=== PATIENT | female | born 1950 | race Caucasian/White ===

== ENCOUNTER → 2017-07-09 | Outpatient (CLI) | payer MEDICARE ==
--- NOTE | 2017-07-09 14:02 | MM ---
Reason for exam: clinical finding. Last mammogram was performed 1 year and 7 months ago. Physical Findings: Nurse did not find any significant physical abnormalities on exam. MG 3D Diag Mammo W/Cad KOURTNEY Bilateral CC and MLO view(s) were taken. Prior study comparison: December 07, 2015, bilateral MG screening mammo w CAD. The breast tissue is extremely dense which could obscure a lesion on mammography. There is no discrete abnormality including area of concern. No significant new findings when compared with previous films. These results were verbally communicated with the patient and result sheet given to the patient on 07/09/17. ASSESSMENT: Negative, BI-RAD 1 RECOMMENDATION: Routine screening mammogram of both breasts in 1 year. Manage patient on a clinical basis.
== END | disposition home or self-care (01) ==
LOC: RADMAMWWP 12:32
PROVIDERS: ATTEND Family Medicine
DX: N64.4 Mastodynia (principal)
CPT/HCPCS: 77066; G0279

== ENCOUNTER 2018-12-20 16:17 | Emergency (ER) | payer MEDICARE ==
[2018-12-20 17:08] VITALS: TEMP 98.1
[2018-12-20] MEDS ORDERED: SODIUM CHLORIDE 0.9% 1,000 ML IV STA (17:35)
[2018-12-20 18:15] LABS: Basophils # (A) 0.1 k/uL (0-0.2); Basophils % (A) 1 %; Eosinophils # (A) 0.2 k/uL (0-0.7); Eosinophils % (A) 2 %; HCT 45.6 % (34.0-46.0); HGB 15.5 gm/dL (11.4-16.0); Lymphocytes # (A) 1.8 k/uL (1.0-4.8); Lymphocytes % (A) 22 %; MCH 29.7 pg (25.0-35.0); MCHC 33.9 g/dL (31.0-37.0); MCV 87.7 fL (80.0-100.0); Mean Platelet Volume 9.4; Monocytes # (A) 0.4 k/uL (0-1.0); Monocytes % (A) 5 %; Neutrophils # (A) 5.4 k/uL (1.3-7.7); Neutrophils % (A) 68 %; Platelet Count 173 k/uL (150-450); RDW 15.7 % (11.5-15.5)
[2018-12-20 18:25] LABS: ALT 27 U/L (9-52); AST 29 U/L (14-36); African American GFR (CKD) >90 (>60 ml/min/1.73 sqM); Albumin 4.7 g/dL (3.5-5.0); Alkaline Phosphatase 69 U/L (38-126); Anion Gap 8 mmol/L; Blood Urea Nitrogen 13 mg/dL (7-17); Calcium 10.2 mg/dL (8.4-10.2); Carbon Dioxide 27 mmol/L (22-30); Chloride 103 mmol/L (98-107); Creatine Kinase 91 U/L (30-135); Glucose 83 mg/dL (74-99); Magnesium 2.1 mg/dL (1.6-2.3); Phosphorus 3.6 mg/dL (2.5-4.5); Potassium 4.6 mmol/L (3.5-5.1); Sodium 138 mmol/L (137-145); Total Bilirubin 0.4 mg/dL (0.2-1.3); Total Protein 7.3 g/dL (6.3-8.2)
[2018-12-20 18:27] LABS: INR 0.9 (<1.2); Partial Thromboplastin Time 22.4 sec (22.0-30.0); Prothrombin Time 9.6 sec (9.0-12.0)
--- NOTE | 2018-12-20 18:27 | XR ---
EXAMINATION TYPE: XR chest 2V DATE OF EXAM: 12/20/2018 COMPARISON: NONE HISTORY: Weakness TECHNIQUE: Frontal and lateral views of the chest are obtained. FINDINGS: Heart and mediastinum are normal. Lungs are clear. Diaphragm is normal. Bony thorax is int act. There are chest leads. IMPRESSION: No active cardiopulmonary disease.
[2018-12-20 18:32] LABS: Appearance,Urine Clear (Clear); Bilirubin,Urine Negative (Negative); Blood,Urine Small (Negative); Color,Urine Light Yellow; Glucose,Urine (UA) Negative (Negative); Ketones,Urine Negative (Negative); Leukocyte Esterase,Urine Negative (Negative); Nitrite,Urine Negative (Negative); PH, Urine 6.5 (5.0-8.0); Protein,Urine Negative (Negative); RBC,Urine 4 /hpf (0-5); Specific Gravity,Urine 1.005 (1.001-1.035); Squamous Epithelial Cell,Urine <1 /hpf (0-4); Urobilinogen,Urine <2.0 mg/dL (<2.0); WBC,Urine <1 /hpf (0-5)
--- NOTE | 2018-12-20 18:36 | ED ---
Weakness HPI - General Chief complaint: Recheck/Abnormal Lab/Rx Stated complaint: Sick and weak Time Seen by Provider: 12/20/18 17:35 Source: patient, RN notes reviewed, old records reviewed Mode of arrival: ambulatory Limitations: no limitations - History of Present Illness Initial comments: This is a 68-year-old female the ER for evaluation. States she is today for evaluation of generalized weakness and overall not feeling well patient has recent issues with significant activity level, doing a lot of painting more than normal. Patient states she is having increasing weakness that she did not take many of her extremities painting experiences severe. Patient states she was using normal pain, water been. She denies any current chest pain or shortness of breath. Patient just states she has not been feeling herself and has fever and chills, weakness MD Complaint: generalized weakness -: days(s) Location: generalized Severity: mild Severity scale (1-10): 3 Consistency: constant Improves with: movement Worsens with: movement Context: recent illness Associated Symptoms: fever/chills - Related Data Home Medications Medication Instructions Recorded Confirmed Biotin 5 mg PO BID 10/17/13 12/20/18 Levothyroxine Sodium [Synthroid] 50 mcg PO DAILY 10/17/13 12/20/18 Magnesium 200 mg PO DAILY 10/17/13 12/20/18 Propranolol LA [Inderal LA] 60 mg PO DAILY 10/17/13 12/20/18 Ranitidine HCl [Zantac] 150 mg PO BID 02/06/14 12/20/18 Calcium Carb/Vitamin D3/Vit K1 1 tab PO DAILY 12/20/18 12/20/18 [Viactiv Soft Chew Tablet] Allergies Allergy/AdvReac Type Severity Reaction Status Date / Time prednisone Allergy Unknown Verified 12/20/18 18:09 diphenhydramine HCl AdvReac Rapid Verified 12/20/18 18:09 [From Benadryl] Heart Rate Review of Systems ROS Statement: Those systems with pertinent positive or pertinent negative responses have been documented in the HPI. ROS Other: All systems not noted in ROS Statement are negative. Past Medical History Past Medical History: GERD/Reflux, Thyroid Disorder Additional Past Medical History / Comment(s): closed head injury 10-13-13, HX OF DYSPHAGIA, glaucoma History of Any Multi-Drug Resistant Organisms: None Reported Additional Past Surgical History / Comment(s): partial thyroidectomy, EGD WITH DILATION Past Anesthesia/Blood Transfusion Reactions: No Reported Reaction Past Psychological History: No Psychological Hx Reported Smoking Status: Former smoker Past Alcohol Use History: None Reported Past Drug Use History: None Reported General Exam Limitations: no limitations General appearance: alert, in no apparent distress Head exam: Present: atraumatic, normocephalic, normal inspection Eye exam: Present: normal appearance, PERRL, EOMI. Absent: scleral icterus, conjunctival injection, periorbital swelling ENT exam: Present: normal exam, mucous membranes moist Neck exam: Present: normal inspection. Absent: tenderness, meningismus, lymphadenopathy Respiratory exam: Present: normal lung sounds bilaterally. Absent: respiratory distress, wheezes, rales, rhonchi, stridor Cardiovascular Exam: Present: regular rate, normal rhythm, normal heart sounds. Absent: systolic murmur, diastolic murmur, rubs, gallop, clicks GI/Abdominal exam: Present: soft, normal bowel sounds. Absent: distended, tenderness, guarding, rebound, rigid Extremities exam: Present: normal inspection, full ROM, normal capillary refill. Absent: tenderness, pedal edema, joint swelling, calf tenderness Back exam: Present: normal inspection Neurological exam: Present: alert, oriented X3, CN II-XII intact Psychiatric exam: Present: normal affect, normal mood Skin exam: Present: warm, dry, intact, normal color. Absent: rash Course Vital Signs 12/20/18 12/20/18 12/20/18 17:05 18:06 18:10 Temperature 98.1 F Pulse Rate 60 53 L 53 L Respiratory 18 20 16 Rate Blood Pressure 146/84 161/93 O2 Sat by Pulse 99 76 L 99 Oximetry 12/20/18 12/20/18 12/20/18 18:20 18:30 18:40 Temperature Pulse Rate 56 L 54 L 46 L Respiratory 16 16 18 Rate Blood Pressure 161/93 161/93 149/80 O2 Sat by Pulse 99 100 99 Oximetry - Reevaluation(s) Reevaluation #1: 12/20/18 18:58 Medical record reviewed Reevaluation #2: 12/20/18 19:47 A she just remains concerned over weakness fatigue and chills Reevaluation #3: 12/20/18 19:47 Spoke with patient regarding findings, questions answered Reevaluation #4: 12/20/18 19:47 denying any chest pain or shortness of breath EKG Findings - EKG Comments: EKG Findings:: EKG shows sinus bradycardia rate of 50, SD 150, QRS 146, QTc 397 Medical Decision Making - Medical Decision Making 68 female the ER for evaluation of not feeling well, weakness fever or chills. No acute cause found here in the ER. Patient's in no acute distress no fever here in the ER. No chest pain or shortness of breath. EKG lab tests x-ray negative. Patient can be discharged home - Lab Data Result diagrams: 12/20/18 18:05 12/20/18 18:05 Lab Results 12/20/18 12/20/18 12/20/18 Range/Units 18:05 18:05 18:05 WBC 8.0 (3.8-10.6) k/uL RBC 5.20 (3.80-5.40) m/uL Hgb 15.5 (11.4-16.0) gm/dL Hct 45.6 (34.0-46.0) % MCV 87.7 (80.0-100.0) fL MCH 29.7 (25.0-35.0) pg MCHC 33.9 (31.0-37.0) g/dL RDW 15.7 H (11.5-15.5) % Plt Count 173 (150-450) k/uL Neutrophils % 68 % Lymphocytes % 22 % Monocytes % 5 % Eosinophils % 2 % Basophils % 1 % Neutrophils # 5.4 (1.3-7.7) k/uL Lymphocytes # 1.8 (1.0-4.8) k/uL Monocytes # 0.4 (0-1.0) k/uL Eosinophils # 0.2 (0-0.7) k/uL Basophils # 0.1 (0-0.2) k/uL PT (9.0-12.0) sec INR (<1.2) APTT (22.0-30.0) sec Sodium 138 (137-145) mmol/L Potassium 4.6 (3.5-5.1) mmol/L Chloride 103 (98-107) mmol/L Carbon Dioxide 27 (22-30) mmol/L Anion Gap 8 mmol/L BUN 13 (7-17) mg/dL Creatinine 0.78 (0.52-1.04) mg/dL Est GFR (CKD-EPI)AfAm >90 (>60 ml/min/1.73 sqM) Est GFR (CKD-EPI)NonAf 80 (>60 ml/min/1.73 sqM) Glucose 83 (74-99) mg/dL Plasma Lactic Acid Marv 0.9 (0.7-2.0) mmol/L Calcium 10.2 (8.4-10.2) mg/dL Phosphorus 3.6 (2.5-4.5) mg/dL Magnesium 2.1 (1.6-2.3) mg/dL Total Bilirubin 0.4 (0.2-1.3) mg/dL AST 29 (14-36) U/L ALT 27 (9-52) U/L Alkaline Phosphatase 69 (38-126) U/L Creatine Kinase 91 (30-135) U/L Troponin I (0.000-0.034) ng/mL NT-Pro-B Natriuret Pep pg/mL Total Protein 7.3 (6.3-8.2) g/dL Albumin 4.7 (3.5-5.0) g/dL Urine Color Urine Appearance (Clear) Urine pH (5.0-8.0) Ur Specific [place] (1.001-1.035) Urine Protein (Negative) Urine Glucose (UA) (Negative) Urine Ketones (Negative) Urine Blood (Negative) Urine Nitrite (Negative) Urine Bilirubin (Negative) Urine Urobilinogen (<2.0) mg/dL Ur Leukocyte Esterase (Negative) Urine RBC (0-5) /hpf Urine WBC (0-5) /hpf Ur Squamous Epith Cells (0-4) /hpf 12/20/18 12/20/18 12/20/18 Range/Units 18:05 18:05 18:05 WBC (3.8-10.6) k/uL RBC (3.80-5.40) m/uL Hgb (11.4-16.0) gm/dL Hct (34.0-46.0) % MCV (80.0-100.0) fL MCH (25.0-35.0) pg MCHC (31.0-37.0) g/dL RDW (11.5-15.5) % Plt Count (150-450) k/uL Neutrophils % % Lymphocytes % % Monocytes % % Eosinophils % % Basophils % % Neutrophils # (1.3-7.7) k/uL Lymphocytes # (1.0-4.8) k/uL Monocytes # (0-1.0) k/uL Eosinophils # (0-0.7) k/uL Basophils # (0-0.2) k/uL PT 9.6 (9.0-12.0) sec INR 0.9 (<1.2) APTT 22.4 (22.0-30.0) sec Sodium (137-145) mmol/L Potassium (3.5-5.1) mmol/L Chloride (98-107) mmol/L Carbon Dioxide (22-30) mmol/L Anion Gap mmol/L BUN (7-17) mg/dL Creatinine (0.52-1.04) mg/dL Est GFR (CKD-EPI)AfAm (>60 ml/min/1.73 sqM) Est GFR (CKD-EPI)NonAf (>60 ml/min/1.73 sqM) Glucose (74-99) mg/dL Plasma Lactic Acid Marv (0.7-2.0) mmol/L Calcium (8.4-10.2) mg/dL Phosphorus (2.5-4.5) mg/dL Magnesium (1.6-2.3) mg/dL Total Bilirubin (0.2-1.3) mg/dL AST (14-36) U/L ALT (9-52) U/L Alkaline Phosphatase (38-126) U/L Creatine Kinase (30-135) U/L Troponin I <0.012 (0.000-0.034) ng/mL NT-Pro-B Natriuret Pep 187 pg/mL Total Protein (6.3-8.2) g/dL Albumin (3.5-5.0) g/dL Urine Color Urine Appearance (Clear) Urine pH (5.0-8.0) Ur Specific [place] (1.001-1.035) Urine Protein (Negative) Urine Glucose (UA) (Negative) Urine Ketones (Negative) Urine Blood (Negative) Urine Nitrite (Negative) Urine Bilirubin (Negative) Urine Urobilinogen (<2.0) mg/dL Ur Leukocyte Esterase (Negative) Urine RBC (0-5) /hpf Urine WBC (0-5) /hpf Ur Squamous Epith Cells (0-4) /hpf 12/20/18 Range/Units 18:05 WBC (3.8-10.6) k/uL RBC (3.80-5.40) m/uL Hgb (11.4-16.0) gm/dL Hct (34.0-46.0) % MCV (80.0-100.0) fL MCH (25.0-35.0) pg MCHC (31.0-37.0) g/dL RDW (11.5-15.5) % Plt Count (150-450) k/uL Neutrophils % % Lymphocytes % % Monocytes % % Eosinophils % % Basophils % % Neutrophils # (1.3-7.7) k/uL Lymphocytes # (1.0-4.8) k/uL Monocytes # (0-1.0) k/uL Eosinophils # (0-0.7) k/uL Basophils # (0-0.2) k/uL PT (9.0-12.0) sec INR (<1.2) APTT (22.0-30.0) sec Sodium (137-145) mmol/L Potassium (3.5-5.1) mmol/L Chloride (98-107) mmol/L Carbon Dioxide (22-30) mmol/L Anion Gap mmol/L BUN (7-17) mg/dL Creatinine (0.52-1.04) mg/dL Est GFR (CKD-EPI)AfAm (>60 ml/min/1.73 sqM) Est GFR (CKD-EPI)NonAf (>60 ml/min/1.73 sqM) Glucose (74-99) mg/dL Plasma Lactic Acid Marv (0.7-2.0) mmol/L Calcium (8.4-10.2) mg/dL Phosphorus (2.5-4.5) mg/dL Magnesium (1.6-2.3) mg/dL Total Bilirubin (0.2-1.3) mg/dL AST (14-36) U/L ALT (9-52) U/L Alkaline Phosphatase (38-126) U/L Creatine Kinase (30-135) U/L Troponin I (0.000-0.034) ng/mL NT-Pro-B Natriuret Pep pg/mL Total Protein (6.3-8.2) g/dL Albumin (3.5-5.0) g/dL Urine Color Light Yellow Urine Appearance Clear (Clear) Urine pH 6.5 (5.0-8.0) Ur Specific [place] 1.005 (1.001-1.035) Urine Protein Negative (Negative) Urine Glucose (UA) Negative (Negative) Urine Ketones Negative (Negative) Urine Blood Small H (Negative) Urine Nitrite Negative (Negative) Urine Bilirubin Negative (Negative) Urine Urobilinogen <2.0 (<2.0) mg/dL Ur Leukocyte Esterase Negative (Negative) Urine RBC 4 (0-5) /hpf Urine WBC <1 (0-5) /hpf Ur Squamous Epith Cells <1 (0-4) /hpf - Radiology Data Radiology results: report reviewed (X-rays negative for acute disease), image reviewed Disposition Clinical Impression: Weakness Disposition: HOME SELF-CARE Condition: Good Instructions (If sedation given, give patient instructions): Weakness (ED) Is patient prescribed a controlled substance at d/c from ED?: No Referrals: Dash Bruno DO [Primary Care Provider] - 1-2 days
[2018-12-20 19:53] VITALS: BP 138/80; PULSE 57; RESP 20
== END 2018-12-20 19:57 | disposition home or self-care (01) ==
LOC: EC 16:17
DX: R53.1 Weakness (principal); K21.9 Gastro-esophageal reflux disease without esophagitis; Z87.891 Personal history of nicotine dependence; Z79.890 Hormone replacement therapy; Z79.899 Other long term (current) drug therapy; Z88.8 Allergy status to other drugs, medicaments and biological substances; E89.0 Postprocedural hypothyroidism
CPT/HCPCS: 36415; 71046; 80053; 81001; 82550; 83605; 83735; 83880; 84100; 84484; 85025; 85610; 85730; 87086; 93005; 96360; 96361; 99285

== ENCOUNTER 2021-08-13 08:12 | Day surgery (SDC) | payer MEDICARE ==
[2021-08-12 14:03] VITALS: BMI 21.1
[~2021-08-13 08:12] MED LIST: LACTATED RINGERS 1,000 ML IV SCH; LIDOCAINE 1% (10MG/ML) FOR IV START INTRADERMA PRN
[2021-08-13 09:36] VITALS: RESP 16; TEMP 98.4
[2021-08-13] MEDS ORDERED: LIDOCAINE 2% INJ 20 MG/ML (2 ML VIAL) ONE (10:16)
[2021-08-13] MEDS ORDERED: PROPOFOL 10 MG/ML 20 ML VIAL IV ONE (10:16)
--- NOTE | 2021-08-13 10:35 | P.PCN ---
Date of Procedure: 08/13/21 Procedure(s) Performed: BRIEF HISTORY: Patient is a 71-year-old, pleasant, white female scheduled for an upper endoscopy as part of evaluation of long-standing history of GERD, severe throat discomfort and hoarseness for the last 6 months duration. She has been on omeprazole 20 mg daily for several years. She denies any heartburn. Reports no dysphagia or odynophagia. PROCEDURE PERFORMED: Esophagogastroduodenoscopy with biopsy. PREOPERATIVE DIAGNOSIS: Throat discomfort, chronic hoarseness and throat pain/history of GERD. IV sedation per anesthesia. PROCEDURE: After informed consent was obtained, the patient was brought into the endoscopy unit. IV sedation was administered by Anesthesia under continuous monitoring. Initially the Olympus GIF-140 video endoscope was inserted into the mouth. Esophagus intubated without any difficulty. It was gradually advanced into the stomach and duodenum and carefully examined. The bulb and the second part of the duodenum appeared normal. The scope at this time was withdrawn to the stomach, adequately insufflated with air, and upon careful examination, mucosa of the antrum, had erosions and biopsies were done from this area. The body, cardia and the fundus appeared normal. The scope was then withdrawn into the esophagus. The GE junction was located at 39 cm from the incisors. Small sliding Hiatal hernia noted. There was a distal patent distal esophageal Schatzki's ring noted. The esophagus appeared normal. There were no erosions or ulcerations seen and the patient tolerated the procedure well. IMPRESSION: 1. Small hiatal hernia but no evidence of esophagitis. 2. Widely patent distal esophageal Schatzki's ring 3. Mild antral gastritis. RECOMMENDATIONS: The findings of this examination were discussed with the patient is a family. She was advised to follow with the biopsies. She will continue with her current medications and follow antireflux measures. She will be referred for ENT evaluation of her symptoms.
[2021-08-13 10:56] VITALS: BP 117/85; PULSE 61
== END 2021-08-13 11:25 | disposition home or self-care (01) ==
LOC: ORWHC2ENDO 08:12
PROVIDERS: ATTEND Internal Medicine Gastroenterology
DX: K44.9 Diaphragmatic hernia without obstruction or gangrene (principal); K22.2 Esophageal obstruction; K29.70 Gastritis, unspecified, without bleeding; K21.9 Gastro-esophageal reflux disease without esophagitis; Z79.899 Other long term (current) drug therapy; Z88.8 Allergy status to other drugs, medicaments and biological substances
CPT/HCPCS: 43239; 88305; J2704; J2001

== ENCOUNTER 2022-01-04 17:49 | Emergency (ER) | payer MEDICARE ==
[2022-01-04 19:02] LABS: Appearance,Urine Clear (Clear); Bilirubin,Urine Negative (Negative); Blood,Urine Large (Negative); Color,Urine Yellow; Glucose,Urine (UA) Negative (Negative); Ketones,Urine Negative (Negative); Leukocyte Esterase,Urine Negative (Negative); Mucus,Urine Rare /hpf; Nitrite,Urine Negative (Negative); Protein,Urine Trace (Negative); RBC,Urine 4 /hpf (0-5); Specific Gravity,Urine 1.014 (1.001-1.035); Squamous Epithelial Cell,Urine <1 /hpf (0-4); Urobilinogen,Urine <2.0 mg/dL (<2.0); WBC,Urine 2 /hpf (0-5)
[2022-01-04] MEDS ORDERED: SODIUM CHLORIDE 0.9% 1,000 ML IV STA ×2 (21:33)
[2022-01-04] MEDS ORDERED: SODIUM CHLORIDE 0.9% 500 ML 500 ML IV STA (21:33)
[2022-01-04] MEDS ORDERED: KETOROLAC 15 MG/ML 1 ML VIAL IVP STA (21:33)
[2022-01-04] MEDS ORDERED: PHENAZOPYRIDINE 200 MG TAB PO STA (21:33)
[2022-01-04] MEDS ORDERED: ACETAMINOPHEN TAB 500 MG TAB PO STA (21:34)
--- NOTE | 2022-01-04 21:34 | ED ---
Recheck HPI - General Chief Complaint: Urogenital Stated Complaint: urogenital Time Seen by Provider: 01/04/22 21:16 Source: patient, RN notes reviewed, old records reviewed Mode of arrival: ambulatory Limitations: no limitations - History of Present Illness Initial Comments: This is a 71-year-old female DF for evaluation presented today for evaluation regards to check infection symptoms burning with urination abdominal plain flank pain back pain fevers. Patient is been on 2 antibiotics over the past week and continued to have pain and burning with urination despite antibiotics which. Patient has mild nausea no vomiting no other complaints. No symptoms of cough congestion shortness of breath diarrhea or vomiting MD Complaint: abnormal lab, needs IV antibiotics (Persistent urinary tract infection) -: week(s) Returns Today for: Called Because of Abnormal Lab/Test, needs IV antibiotics, persistent/worsening pain related to initial visit Symptoms Since Prior Visit: improved, fever Associated Symptoms: abdominal pain Treatments Prior to Arrival: Given Antibiotics on - Related Data Home Medications Medication Instructions Recorded Confirmed Biotin 1 mg PO DAILY 10/17/13 08/13/21 Magnesium 400 mg PO HS 10/17/13 08/13/21 Propranolol LA [Inderal LA] 60 mg PO QAM 10/17/13 08/13/21 Calcium Carb/Vitamin D3/Vit K1 1 each PO DAILY 08/12/21 08/13/21 [Viactiv 650 mg-12.5 Mcg Chew] Cholecalciferol [Vitamin D3 (25 25 mcg PO DAILY 08/12/21 08/13/21 Mcg = 1000 Iu)] Levothyroxine Sodium [Euthyrox] 50 mcg PO QAM 08/12/21 08/13/21 Omeprazole 20 mg PO QAM 08/12/21 08/13/21 Previous Rx's Medication Instructions Recorded Cephalexin [Keflex] 500 mg PO TID #30 cap 01/04/22 Phenazopyridine [Pyridium] 200 mg PO TID #9 tablet 01/04/22 Allergies Allergy/AdvReac Type Severity Reaction Status Date / Time diphenhydramine HCl Allergy Rapid Verified 08/13/21 09:38 [From Benadryl] Heart Rate liothyronine [From Cytomel] Allergy Rapid Verified 08/13/21 09:38 Heart Rate prednisone Allergy Rapid Verified 08/13/21 09:38 Heart Rate Review of Systems ROS Statement: Those systems with pertinent positive or pertinent negative responses have been documented in the HPI. ROS Other: All systems not noted in ROS Statement are negative. Past Medical History Past Medical History: GERD/Reflux, Thyroid Disorder Additional Past Medical History / Comment(s): tonsil stones and severe burning to throat for last 4 weeks, irregular heart beat, rt atrium enlargement,left bundle branch blockage, vertigo, hx closed head injury 10-13-13, glaucoma,diff swallowing in past History of Any Multi-Drug Resistant Organisms: None Reported Additional Past Surgical History / Comment(s): partial thyroidectomy, EGD WITH DILATION Past Anesthesia/Blood Transfusion Reactions: No Reported Reaction, Motion Sickness Past Psychological History: No Psychological Hx Reported Smoking Status: Former smoker - Past Family History Mother Family Medical History: No Reported History General Exam Limitations: no limitations General appearance: alert, in no apparent distress Head exam: Present: atraumatic, normocephalic, normal inspection Eye exam: Present: normal appearance, PERRL, EOMI. Absent: scleral icterus, conjunctival injection, periorbital swelling ENT exam: Present: normal exam, mucous membranes moist Neck exam: Present: normal inspection. Absent: tenderness, meningismus, lymphadenopathy Respiratory exam: Present: normal lung sounds bilaterally. Absent: respiratory distress, wheezes, rales, rhonchi, stridor Cardiovascular Exam: Present: regular rate, normal rhythm, normal heart sounds. Absent: systolic murmur, diastolic murmur, rubs, gallop, clicks GI/Abdominal exam: Present: soft, normal bowel sounds. Absent: distended, tenderness, guarding, rebound, rigid Extremities exam: Present: normal inspection, full ROM, normal capillary refill. Absent: tenderness, pedal edema, joint swelling, calf tenderness Back exam: Present: normal inspection Neurological exam: Present: alert, oriented X3, CN II-XII intact Psychiatric exam: Present: normal affect, normal mood Skin exam: Present: warm, dry, intact, normal color. Absent: rash Course Vital Signs 01/04/22 01/04/22 18:16 22:20 Temperature 98.5 F 97.6 F Pulse Rate 89 87 Respiratory 16 16 Rate Blood Pressure 109/72 112/70 O2 Sat by Pulse 89 L 95 Oximetry - Reevaluation(s) Reevaluation #1: 01/04/22 22:02 Medical records reviewed Reevaluation #2: 01/04/22 23:08 Patient is informed of results and questions have been answered Reevaluation #3: 01/04/22 23:08 Patient has no change in symptoms here in the ER, we'll discharge antibiotics Medical Decision Making - Medical Decision Making 71 female to the emergency department for evaluation patient presents today for evaluation regards to urinary tract infection maybe early pyelonephritis. Patient is with fever and elevated white count. Patient will be change antibiotics again will continue antibiotics at home and await cultures - Lab Data Result diagrams: 01/04/22 22:26 01/04/22 22:26 Lab Results 01/04/22 01/04/22 01/04/22 Range/Units 18:34 22:26 22:26 WBC 18.6 H (3.8-10.6) k/uL RBC 5.22 (3.80-5.40) m/uL Hgb 14.9 (11.4-16.0) gm/dL Hct 44.9 (34.0-46.0) % MCV 85.9 (80.0-100.0) fL MCH 28.5 (25.0-35.0) pg MCHC 33.2 (31.0-37.0) g/dL RDW 12.6 (11.5-15.5) % Plt Count 145 L (150-450) k/uL MPV 9.2 Neutrophils % 88 % Lymphocytes % 7 % Monocytes % 3 % Eosinophils % 1 % Basophils % 1 % Neutrophils # 16.4 H (1.3-7.7) k/uL Lymphocytes # 1.3 (1.0-4.8) k/uL Monocytes # 0.6 (0-1.0) k/uL Eosinophils # 0.1 (0-0.7) k/uL Basophils # 0.1 (0-0.2) k/uL Sodium 136 L (137-145) mmol/L Potassium 4.0 (3.5-5.1) mmol/L Chloride 98 (98-107) mmol/L Carbon Dioxide 24 (22-30) mmol/L Anion Gap 14 mmol/L BUN 14 (7-17) mg/dL Creatinine 0.80 (0.52-1.04) mg/dL Est GFR (CKD-EPI)AfAm 87 (>60 ml/min/1.73 sqM) Est GFR (CKD-EPI)NonAf 76 (>60 ml/min/1.73 sqM) Glucose 115 H (74-99) mg/dL Calcium 10.1 (8.4-10.2) mg/dL Total Bilirubin 0.9 (0.2-1.3) mg/dL AST 30 (14-36) U/L ALT 25 (4-34) U/L Alkaline Phosphatase 67 (38-126) U/L Total Protein 7.3 (6.3-8.2) g/dL Albumin 4.8 (3.5-5.0) g/dL Amylase 59 (30-110) U/L Lipase 34 (23-300) U/L Urine Color Yellow Urine Appearance Clear (Clear) Urine pH 6.0 (5.0-8.0) Ur Specific [place] 1.014 (1.001-1.035) Urine Protein Trace H (Negative) Urine Glucose (UA) Negative (Negative) Urine Ketones Negative (Negative) Urine Blood Large H (Negative) Urine Nitrite Negative (Negative) Urine Bilirubin Negative (Negative) Urine Urobilinogen <2.0 (<2.0) mg/dL Ur Leukocyte Esterase Negative (Negative) Urine RBC 4 (0-5) /hpf Urine WBC 2 (0-5) /hpf Ur Squamous Epith Cells <1 (0-4) /hpf Urine Mucus Rare H (None) /hpf - Radiology Data Radiology results: report reviewed (CT of the abdomen and pelvis negative for acute disease), image reviewed Disposition Clinical Impression: Urinary tract infection, Fever, Pyelonephritis Disposition: HOME SELF-CARE Condition: Good Instructions (If sedation given, give patient instructions): Urinary Tract Infection in Women (ED) Prescriptions: Cephalexin [Keflex] 500 mg PO TID #30 cap Phenazopyridine [Pyridium] 200 mg PO TID #9 tablet Is patient prescribed a controlled substance at d/c from ED?: No Referrals: Dash Bruno DO [Primary Care Provider] - 1-2 days Time of Disposition: 23:10
--- NOTE | 2022-01-04 22:21 | CT ---
EXAMINATION TYPE: CT abdomen pelvis wo con DATE OF EXAM: 01/04/2022 COMPARISON: None HISTORY: Abdominal pain/kidney pain CT DLP: 446.6 mGycm Automated exposure control for dose reduction was used. Images obtained from the diaphragm to the floor the pelvis with no contrast. There is a 1 cm No pleural effusion. Heart size is normal. No pericardial effusion. Liver spleen and stomach pancreas appear intact. The bile ducts are not dilated. There is no adrenal mass. Kidneys have normal size. There is mild right-sided pleural-based infiltrat e in the lateral left lower lobe. Hydronephrosis. Right ureter is not dilated. There is 2 cm cortical cyst upper pole right kidney. Ureters are not dilated. Bladder distends smoothly. No inguinal hernia . No retroperitoneal adenopathy. No evidence of a pelvic mass. No inguinal hernia. No free fluid in t he pelvis. Uterus is anteverted. The lumbar vertebrae have normal alignment. No compression fracture. Disc spaces are fairly normal f or age. There is minimal narrowing at L4-5. Bony pelvis is intact. The hip joints are intact. There is no mesenteric edema. No ascites or free air. No sign of a bowel obstruction. There is mild atheromatous change in the abdominal aorta. IMPRESSION: There is minimal fullness of the right renal pelvis. No renal or ureteral calculus seen. Ureters are not dilated. 1 cm nodular infiltrate in the lateral left lung base.
[2022-01-04 22:44] LABS: Basophils # (A) 0.1 k/uL (0-0.2); Basophils % (A) 1 %; Eosinophils # (A) 0.1 k/uL (0-0.7); Eosinophils % (A) 1 %; HCT 44.9 % (34.0-46.0); HGB 14.9 gm/dL (11.4-16.0); Lymphocytes # (A) 1.3 k/uL (1.0-4.8); Lymphocytes % (A) 7 %; MCH 28.5 pg (25.0-35.0); MCHC 33.2 g/dL (31.0-37.0); MCV 85.9 fL (80.0-100.0); Mean Platelet Volume 9.2; Monocytes # (A) 0.6 k/uL (0-1.0); Monocytes % (A) 3 %; Neutrophils # (A) 16.4 k/uL (1.3-7.7); Neutrophils % (A) 88 %; Platelet Count 145 k/uL (150-450); RBC 5.22 m/uL (3.80-5.40); RDW 12.6 % (11.5-15.5); WBC 18.6 k/uL (3.8-10.6)
[2022-01-04 22:58] LABS: Albumin 4.8 g/dL (3.5-5.0); Calcium 10.1 mg/dL (8.4-10.2); Total Bilirubin 0.9 mg/dL (0.2-1.3); Total Protein 7.3 g/dL (6.3-8.2)
[2022-01-04 23:04] VITALS: TEMP 97.6
[2022-01-04] MEDS ORDERED: CEPHALEXIN 500MG STARTER PACK 4 CAP BTL PO STA (23:07)
[2022-01-05] VITALS: BP 116/68; PULSE 82; RESP 20
== END 2022-01-04 23:59 | disposition home or self-care (01) ==
LOC: EC 17:49
DX: N12 Tubulo-interstitial nephritis, not specified as acute or chronic (principal); E07.9 Disorder of thyroid, unspecified; K21.9 Gastro-esophageal reflux disease without esophagitis; Z79.899 Other long term (current) drug therapy; Z79.83 Long term (current) use of bisphosphonates; Z87.891 Personal history of nicotine dependence; Z88.8 Allergy status to other drugs, medicaments and biological substances; Z88.6 Allergy status to analgesic agent
CPT/HCPCS: 36415; 80053; 82150; 83690; 85025; 81001; 87040; 87491; 87591; 87086; 74176; 99284; 96365; 96375; J0696; J1885

== ENCOUNTER → 2022-01-23 | Outpatient (CLI) | payer MEDICARE ==
[2022-01-23 13:35] LABS: ALT 33 U/L (4-34); AST 39 U/L (14-36); African American GFR (CKD) 86 (>60 ml/min/1.73 sqM); Albumin 4.6 g/dL (3.5-5.0); Alkaline Phosphatase 84 U/L (38-126); Anion Gap 13 mmol/L; Blood Urea Nitrogen 19 mg/dL (7-17); Calcium 10.1 mg/dL (8.4-10.2); Carbon Dioxide 26 mmol/L (22-30); Chloride 101 mmol/L (98-107); Globulin 2.3 g/dL; Glucose 88 mg/dL (74-99); Non-African American GFR(CKD) 75 (>60 ml/min/1.73 sqM); Potassium 4.4 mmol/L (3.5-5.1); Sodium 140 mmol/L (137-145); Total Bilirubin 0.5 mg/dL (0.2-1.3); Total Protein 6.9 g/dL (6.3-8.2)
--- NOTE | 2022-01-23 14:47 | CT ---
EXAMINATION TYPE: CT chest w con DATE OF EXAM: 01/23/2022 COMPARISON: CT abdomen and pelvis January 04, 2022 HISTORY: SOLITARY PULMONARY NODULE, recent abnormal CT. CT DLP: 146.20 mGycm. Automated Exposure Control for Dose Reduction was Utilized. TECHNIQUE: CT scan of the thorax is performed following with IV Contrast, patient injected with 50 m L of Isovue 300. FINDINGS: LUNGS: Persistent suspicious peripheral 1.2 x 1.1 cm left lower lobe nodule axial image 43. Mild biap ical pleural/parenchymal scarring. No additional greater than 5 mm pulmonary nodules or masses identi fied. MEDIASTINUM: There are abnormal enlarged left hilar lymph nodes. References a 2.1 x 1.5 cm left amos r lymph node axial image 26. There are prominent borderline enlarged AP window lymph nodes. Reference is 1.3 x 1.1 cm lymph node anteriorly image 21. There are suspicious paratracheal lymph nodes measur ing up to 1.3 x 0.8 cm axial image 19. There is enlarged subcarinal lymph node measuring 1.8 x 1.2 cm axial image 25. Right thyroid lobe is not visualized possibly surgically absent, correlate clinicall y. Mild coronary artery calcification incidentally noted. OTHER: There is a partially exophytic 2.7 cm thin-walled cyst upper pole right kidney coronal image 4 8. Slightly exaggerated thoracic kyphosis noted. No adrenal masses. IMPRESSION: Confirmation of persistent suspicious 1.2 cm left lower lobe peripheral nodule. There is abnormal thoracic adenopathy seen. Findings suspicious for primary lung neoplasm. Advise PET CT follo w-up and pulmonology referral.
== END | disposition home or self-care (01) ==
LOC: RADCTMAIN 12:59
PROVIDERS: ATTEND Family Medicine
DX: R59.0 Localized enlarged lymph nodes (principal)
CPT/HCPCS: 80053; 71260; 36415; Q9967

== ENCOUNTER → 2022-01-31 | Outpatient (CLI) | payer MEDICARE ==
--- NOTE | 2022-02-02 13:42 | PE ---
EXAMINATION TYPE: PET CT fusion skull to thigh DATE OF EXAM: 01/31/2022 CLINICAL INDICATION:Female, 71 years old with history of R91.1 SPN; TECHNIQUE: Following the intravenous administration of 11.4 mCi of F-18 FDG, whole body images a re performed from the skull base to the midthigh. Images are reviewed on the computer in the coronal , axial, and sagittal planes. Reconstructed rotating images are created on independent workstation a nd reviewed on the computer. A non-contrast CT is performed in conjunction with the PET scan. Gluco se level 98 mg/dL COMPARISON: CT 01/04/2022, 01/23/2022, PET/CT None, FINDINGS: Mediastinal SUV mean is 1.7. Hepatic parenchyma SUV mean is 2.4. SKULL BASE AND NECK: No suspicious FDG activity. CHEST, MEDIASTINUM, AND HILAR REGION: Multiple mediastinal lymph nodes with increased FDG activity. Examples include: * Subcarinal focus likely representing a lymph node max SUV 4.4, evaluation slightly limited without IV contrast to measure this lymph node given ill-defined soft tissue. * Left low paratracheal max SUV 5.6 measuring 8 mm in short axis. * Right upper paratracheal lymph nodes max SUV 2.1 measuring up to 11 mm in short axis. Left pulmonary hilum mass measuring 2.7 x 1.9 with max SUV 9.6. Left lower lobe pulmonary nodule measuring 8 mm with max SUV 1.6. ABDOMEN AND PELVIS: No suspicious FDG activity. OSSEOUS STRUCTURES: No suspicious FDG activity. OTHER CT: Atherosclerosis of the arterial vasculature including the carotid bifurcations and coronary arteries. Mild cardiomegaly. Cholelithiasis. Right upper pole renal cyst. IMPRESSION: 1. Findings consistent with primary lung malignancy with either the left pulmonary hilum mass of the left lower lobe pulmonary nodule as a primary with metastatic disease to the the mediastinum. 2. No findings to suggest metastatic disease within the neck, abdomen or pelvis, or osseous structur es.
== END | disposition home or self-care (01) ==
LOC: RADXRMAIN 10:06
PROVIDERS: ATTEND Family Medicine
DX: R91.1 Solitary pulmonary nodule (principal)
CPT/HCPCS: 78815; A9552

== ENCOUNTER 2022-02-19 10:43 | Day surgery (SDC) | payer MEDICARE ==
[2022-02-18 11:37] VITALS: BMI 20.3
[~2022-02-19 10:43] MED LIST changes: +ALBUTEROL NEB (CONC) 2.5 MG/0.5 ML INHALATION ONE; +LIDOCAINE 2% (PF) 20 MG/ML 5 ML VIAL INHALATION ONE; +LIDOCAINE VISCOUS 300 MG/15 ML CUP MUCOUS MEM ONE; +SODIUM CHLORIDE 0.9% 1,000 ML IV SCH
--- NOTE | 2022-02-19 13:14 | CT ---
EXAMINATION TYPE: CT Chest wo sherlyn Verramesh Protocol DATE OF EXAM: 02/19/2022 COMPARISON: 01/23/2022 HISTORY: pulmonary nodule, mass, for bronch CT DLP: [address] of the chest was performed with lung and mediastinal window settings submitted seda Chavez protocol for navigational bronchoscopy.. The lack of contrast limits evaluation of the vascu lar, mediastinal and parenchymal structures including the upper abdomen. LUNGS: 9 mm left lower lobe peripheral nodule is redemonstrated and appears to be slightly smaller in size. Prior measurement of 1.1 cm. Left hilar mass measures 1.7 cm versus prior measurement of 2.0 x 1.4 cm. No additional nodules or masses seen. MEDIASTINUM/GENIE: Thoracic aorta is of normal caliber with limited evaluation given lack of contrast . The heart is not enlarged. No evidence for mediastinal mass. Paratracheal adenopathy redemonstrat ed with left tracheobronchial lymph node of 1.1 cm and right precarinal lymph node of 9.3 mm. UPPER ABDOMEN: No significant abnormality is seen. OTHER: No significant other abnormality. IMPRESSION: 1. Left hilar mass with mild paratracheal adenopathy. Peripheral pulmonary nodule left lower lobe is slightly smaller in size.
[2022-02-19] MEDS ORDERED: MIDAZOLAM 2 MG/2 ML VIAL ONE (13:23)
[2022-02-19] MEDS ORDERED: ROCURONIUM 10 MG/ML (5 ML VIAL) IV ONE (13:23)
[2022-02-19] MEDS ORDERED: LIDOCAINE 2% INJ 20 MG/ML (2 ML VIAL) ONE (13:23)
[2022-02-19] MEDS ORDERED: SUCCINYLCHOLINE CHLORIDE 200 MG/10 ML VIAL IV ONE (13:23)
[2022-02-19] MEDS ORDERED: fentaNYL (PF) 50 MCG/ML 2 ML AMP ONE (13:23)
[2022-02-19] MEDS ORDERED: PROPOFOL 10 MG/ML 20 ML VIAL IV ONE (13:23)
[2022-02-19] MEDS ORDERED: ONDANSETRON 4 MG/2 ML VIAL ONE (13:23)
[2022-02-19] MEDS ORDERED: NALOXONE 0.4 MG/ML 1 ML VIAL ONE (13:23)
[2022-02-19] MEDS ORDERED: GLYCOPYRROLATE 0.2 MG/ML 2 ML VIAL ONE (13:23)
[2022-02-19] MEDS ORDERED: NEOSTIGMINE 1 MG/ML 10 ML VIAL ONE (13:23)
[2022-02-19] MEDS ORDERED: ePHEDrine 50 MG/ML 1 ML VIAL ONE (13:23)
[2022-02-19] MEDS ORDERED: DEXAMETHASONE SOD PHOSPHATE 10 MG/ML 1 ML VIAL ONE (13:23)
--- NOTE | 2022-02-19 14:42 | P.PCN ---
Date of Procedure: 02/19/22 Preoperative Diagnosis: Mediastinal lymphadenopathy Postoperative Diagnosis: Left hilar lymphadenopathy, station 11 L Left paratracheal lymphadenopathy, 4L Subcarinal lymphadenopathy station 7 Proximal narrowing of the left lower lobe bronchus, 50% narrowing Procedure(s) Performed: Flexible bronchoscopy Endobronchial ultrasound EBUS with transbronchial needle aspirate of left hilar station 11 L and subcarinal station 7 lymph node Anesthesia: MISTYA Surgeon: Jean Herrera Spool Worker #1: Avis Rocha Estimated Blood Loss (ml): 0 Pathology: other Condition: stable Disposition: same day Operative Findings: After obtaining the consent the patient was taken to the OR suite he was intubated and put on MV by anesthesia then the scope was advanced to the ET tube until the Trachea was seen and it was normal and then the layla appears normal then the scope advanced to the left main and PAPITO LB1-LB3 were seen and no endobronchial lesions were seen then the scope advanced to the lingula and the LB4 and LB5 were seen and no endobronchial lesions were seen the scope retracted and advanced to the left lower lobes and proximally, the left lower lobe bronchus origin was narrowed by around 50% due to the left hilar lymph node causing extrinsic compression on the lateral wall of the airway. The flexible bronchoscope was advanced past this area and LB6 to LB12 were seen one by one and no endobronchial lesions, then the scope was retracted back to the layla and advanced to the Right main and RUL RB1 and RB2 and RB3 were seen one by one and no endobronchial lesions were seen the scope then retracted and advanced to the BI and RML RB4 and RB5 were seen and no endobronchial lesions were seen then it was retracted and advanced to the RLL RB6 to RB12 were seen one by one and no endobronchial lesions. Then EBUS was used and the lymph nodes were examined. Direct measurement of the mediastinal lymph nodes revealed a 18x12 mm station 7 lymph node and 16x20 mm 11 L lymph nodes and 8 x 8.2 mm 4 L station lymph node . I performed transbro nchial needle aspirate of station 7 and a total of 5 passes FNA without major bleeding station 11L lymph nodes were a total of 6 passes were obtained. The samples were sent for cell block, flow cytometry and cultures. No major bleeding and the scope was removed and taken out in total the patient was send to the floor in stable condition
[2022-02-19 14:56] VITALS: TEMP 97.8
[2022-02-19 15:33] VITALS: RESP 18
[2022-02-19 15:52] VITALS: BP 149/74; PULSE 71
== END 2022-02-19 16:30 | disposition home or self-care (01) ==
LOC: ORWHC2ENDO 10:43
PROVIDERS: ATTEND Internal Medicine Critical Care Medicine
DX: R91.1 Solitary pulmonary nodule (principal); R59.0 Localized enlarged lymph nodes; K21.9 Gastro-esophageal reflux disease without esophagitis; R42 Dizziness and giddiness
CPT/HCPCS: 87496; 87498; 87529; 87798 ×2; 88305; 88173; 88184; 88185; 88312; 87252; 87070; 87205; 87102; 71250; 31652; J2250; J0330; J1100; J2310; J2710; J2405; J3010; J2704; J2001; 87116; 87206

== ENCOUNTER → 2022-02-26 | Outpatient (CLI) | payer MEDICARE ==
[2022-02-26 23:57] LABS: African American GFR (CKD) 63.5 (60.0-200.0); Albumin 4.4 g/dL (3.8-4.9); Albumin/Globulin Ratio 2.01 (1.60-3.17); Anion Gap 9.4 mmol/L (10.00-18.00); BUN/Creat Ratio 14.62 Ratio (12.00-20.00); Blood Urea Nitrogen 15.2 mg/dL (9.0-27.0); C Reactive Protein, High Sens 0.966 mg/L (0.000-3.000); Calcium 9.9 mg/dL (8.7-10.3); Carbon Dioxide 25.9 mmol/L (20.0-27.5); Globulin 2.2 g/dL (1.6-3.3); Non-African American GFR(CKD) 54.8 (60.0-200.0); Potassium 5.2 mmol/L (3.5-5.5); Total Bilirubin 0.3 mg/dL (0.30-1.20); Total Protein 6.6 g/dL (6.2-8.2)
== END | disposition home or self-care (01) ==
LOC: LABWHC1 14:23
PROVIDERS: ATTEND Internal Medicine Critical Care Medicine
DX: D86.9 Sarcoidosis, unspecified (principal)
CPT/HCPCS: 36415; 80053; 82164; 85652; 86141

== ENCOUNTER 2022-03-04 10:42 | Day surgery (SDC) | payer MEDICARE ==
[~2022-03-04 10:42] MED LIST changes: -LIDOCAINE 1% (10MG/ML) FOR IV START INTRADERMA PRN; -SODIUM CHLORIDE 0.9% 1,000 ML IV SCH
[2022-03-04 12:25] VITALS: RESP 16; TEMP 97.6
[2022-03-04] MEDS ORDERED: LACTATED RINGERS 1,000 ML IV ONE (12:40)
[2022-03-04] MEDS ORDERED: MIDAZOLAM 2 MG/2 ML VIAL ONE (13:03)
[2022-03-04] MEDS ORDERED: LIDOCAINE 2% INJ 20 MG/ML (2 ML VIAL) ONE (13:03)
[2022-03-04] MEDS ORDERED: PROPOFOL 10 MG/ML 20 ML VIAL IV ONE (13:03)
[2022-03-04] MEDS ORDERED: GLYCOPYRROLATE 0.2 MG/ML 2 ML VIAL ONE (13:03)
[2022-03-04] MEDS ORDERED: LIDOCAINE 2% INJ 20 MG/ML INTRATRACH ONE (13:11)
[2022-03-04 13:37] VITALS: BP 129/73; PULSE 72
--- NOTE | 2022-03-04 20:32 | PCN ---
PROCEDURE NOTE PULMONARY/CRITICAL CARE PROCEDURE NOTE: PROCEDURE PERFORMED: Bronchoscopy with evaluation of the vocal cords, hypopharyngeal structures, and subglottic area. PREOPERATIVE DIAGNOSES: 1. Hoarseness. 2. Sarcoidosis. POSTOPERATIVE DIAGNOSES: 1. Hoarseness. 2. Sarcoidosis. OPERATORS: 1. Dr. Kuhn. 2. Dr. Rocha. There were informed consent and universal timeout. ANESTHESIA: Anesthesia provided general anesthesia. DESCRIPTION OF PROCEDURE: There was universal timeout as I mentioned. The procedure took place in room #1 [facility]. After the patient was adequately sedated and being fully monitored, the bronchoscope was inserted through the right nostril. It passed through the right nasopharynx into the oropharynx. The hypopharyngeal structures were next evaluated. The hypopharyngeal structures all appeared relatively normal. This included the anterior commissure, true cords, false cords, arytenoid, piriform sinuses - both right and left, valleculae, and epiglottis. Pictures of this area were obtained. Next, after topicalization, the bronchoscope was pushed through the glottic opening into the trachea. We took the scope all the way down to the tracheal layla. The tracheal layla was sharp. We then pulled back through the trachea, looking through the trachea very carefully to see if there were any subglottic abnormalities. There was no evidence of subglottic stenosis, granulation tissue, or tracheomalacia. Again, pictures of the trachea were taken along the way. No sampling was done. The patient tolerated the procedure well, and the bronchoscope was withdrawn. There was no immediate complication. MMODL / IJN: [id number] /
== END 2022-03-04 13:53 | disposition home or self-care (01) ==
LOC: ORWHC2ENDO 10:42
PROVIDERS: ATTEND Internal Medicine Critical Care Medicine
DX: R91.1 Solitary pulmonary nodule (principal); D86.0 Sarcoidosis of lung
CPT/HCPCS: 31624; J2001 ×2; J2250; J2704

== ENCOUNTER → 2022-08-14 | Outpatient (CLI) | payer MEDICARE ==
[2022-08-14 12:12] LABS: African American GFR (CKD) >90 (>60 ml/min/1.73 sqM); Blood Urea Nitrogen 19 mg/dL (7-17); Non-African American GFR(CKD) 78 (>60 ml/min/1.73 sqM)
--- NOTE | 2022-08-14 13:17 | CT ---
EXAMINATION TYPE: CT chest w con DATE OF EXAM: 08/14/2022 COMPARISON: 02/19/2022 HISTORY: Sarcoidosis. CT DLP: 163.3 mGycm Automated exposure control for dose reduction was used. TECHNIQUE: CT scan of the chest is performed with IV Contrast, patient injected with 100ml mL of Isovue 300. SD P Images are created on CT scanner and reviewed. 3D reconstructed images are created on an [employer] workstation and reviewed. FINDINGS: LUNGS: The lungs are grossly clear, there is no concerning parenchymal consolidation identified. Th ere is no pleural effusion or pneumothorax seen. The tracheobronchial tree is patent. Persistent 7 m m nodule left lower lobe unchanged from prior exam. Biapical pleural thickening seen in the findings suggest mild emphysematous changes. There is a calcified posteriorly in the right upper lobe measurin g 6 mm stable prior exam. No significant interlobular septal thickening. MEDIASTINUM: There is a lymph node noted in the left hilum measuring short axis I cm and previously m easured 1.7 cm additional shotty mediastinal adenopathy seen. Shotty right hilar lymphadenopathy seen . No pathologic adenopathy in the axilla. The heart is mildly enlarged. Coronary artery calcification. No evidence of thoracic aortic aneurysm. Maximal dimension of the main pulmonary artery is 2.4 cm. OTHER: There is hypertrophic degenerative change of the spine. There is a simple appearing cyst righ t kidney. There is finding suggestive of gallbladder sludge or stones. Nonspecific minimal thickening of the left adrenal gland. IMPRESSION: 1. Interval reduction in the left hilar lymphadenopathy now measuring short axis and 1 cm in previous ly measuring 1.7 cm. 2. Interval reduction in size of the left lower lobe pulmonary nodule previously measuring 9 mm and n ow measuring 7 mm. 3. Abnormal attenuation within the gallbladder on abdomen ultrasound assessment a stones versus sludg e.
[2022-08-14 23:57] LABS: ALT 22 U/L (8-44); AST 25 U/L (13-35); African American GFR (CKD) 73.2 (60.0-200.0); Albumin 4.6 g/dL (3.8-4.9); Albumin/Globulin Ratio 2.29 (1.60-3.17); Alkaline Phosphatase 58 U/L (41-126); Bilirubin, Conjugated <0.20 mg/dL (0.20-0.40); Blood Urea Nitrogen 18.2 mg/dL (9.0-27.0); Calcium 10.3 mg/dL (8.7-10.3); Carbon Dioxide 23.9 mmol/L (20.0-27.5); Chloride 104 mmol/L (96-109); Glucose 90 mg/dL (70-110); Non-African American GFR(CKD) 63.2 (60.0-200.0); Potassium 4.5 mmol/L (3.5-5.5); Sodium 142 mmol/L (135-145); Total Protein 6.6 g/dL (6.2-8.2)
== END | disposition home or self-care (01) ==
LOC: RADCTMAIN 11:34
PROVIDERS: ATTEND Internal Medicine Critical Care Medicine
DX: D86.0 Sarcoidosis of lung (principal); R91.1 Solitary pulmonary nodule; K82.8 Other specified diseases of gallbladder; R59.0 Localized enlarged lymph nodes
CPT/HCPCS: 80053; 85652; 82248; 82565; 82164; 84520; 71260; 36415; Q9967

== ENCOUNTER → 2023-01-06 | Outpatient (CLI) | payer MEDICARE ==
[2023-01-06 10:05] LABS: African American GFR (CKD) >90 (>60 ml/min/1.73 sqM); Blood Urea Nitrogen 16 mg/dL (7-17); Non-African American GFR(CKD) 83 (>60 ml/min/1.73 sqM)
--- NOTE | 2023-01-06 11:17 | CT ---
CT urogram. HISTORY: Microhematuria. COMPARISON: CT abdomen pelvis dated 01/04/2022. TECHNIQUE: Multiple axial images are obtained through the abdomen and pelvis before and after the une ventful administration nonionic IV contrast. Delayed postcontrast images were obtained as well. FINDINGS: There is a 9 mm pulmonary nodule in the left lung base. This was seen on the prior CT of the chest da carla 01/23/2022 and appears slightly smaller in size. On the pre-IV contrast images there are no renal calcifications. There is no cholelithiasis. The gallbladder is normal without gallstones, pericholecystic fluid or gallbladder distention. There is no biliary ductal dilatation. There is no focal mass or organomegaly involving the liver, pancreas, spleen or adrenal glands. There is no solid renal masses. There is no hydronephrosis. The caliber the abdominal aorta is normal. The bowel loops are normal in caliber and there is no dilatation or obstruction. There is no pelvic mass, free fluid, abscess or adenopathy. The renal collecting systems including the ureters and urinary bladder are unremarkable without filli ng defect. IMPRESSION: 1. Stable left lower lobe pulmonary nodule. 2. No renal calcification, hydronephrosis or filling defect within the renal collecting systems, uret ers or urinary bladder. 3. No solid renal masses. Simple cortical cysts of the right kidney.
== END | disposition home or self-care (01) ==
LOC: RADCTMAIN 09:10
PROVIDERS: ATTEND Urology
DX: N28.1 Cyst of kidney, acquired (principal); R91.1 Solitary pulmonary nodule; R31.1 Benign essential microscopic hematuria
CPT/HCPCS: 82565; 84520; 74178; 36415; 74400; Q9967

== ENCOUNTER 2023-02-05 17:07 | Emergency (ER) | payer MEDICARE ==
[2023-02-05 17:31] VITALS: BP 129/75; PULSE 60; RESP 16; TEMP 98
[2023-02-05] MEDS ORDERED: GELATIN SPONGE,ABSORB (LARGE) 1 EACH SPONGE TOPICAL STA (18:06)
--- NOTE | 2023-02-05 18:08 | ED ---
Wound/Laceration HPI - General Chief Complaint: Wound/Laceration Stated Complaint: Left hand laceration Time Seen by Provider: 02/05/23 17:58 Source: patient Mode of arrival: ambulatory Limitations: no limitations - History of Present Illness Initial Comments: 9-year-old female presenting with chief complaint of abrasions to the left hand. Patient was pouring a 40 pound bag of salt into her water softener when the back slipped causing abrasions to the hand. Patient has a large abrasion over the dorsal surface with one abrasion over the dorsal surface of the index finger. She is unsure of last tetanus shot was. She has full range of motion and sensation. - Related Data Home Medications Medication Instructions Recorded Confirmed Magnesium 400 mg PO BID 10/17/13 12/17/22 Propranolol LA [Inderal LA] 60 mg PO QAM 10/17/13 12/17/22 Cholecalciferol [Vitamin D3 (25 25 mcg PO QAM 08/12/21 12/17/22 Mcg = 1000 Iu)] Levothyroxine Sodium [Euthyrox] 50 mcg PO QAM 08/12/21 12/19/22 Famotidine 20 mg PO BID 12/17/22 12/17/22 Loratadine [Claritin] 10 mg PO QAM 12/17/22 12/17/22 Allergies Allergy/AdvReac Type Severity Reaction Status Date / Time diphenhydramine HCl Allergy Rapid Verified 02/05/23 17:22 [From Benadryl] Heart Rate liothyronine [From Cytomel] Allergy Rapid Verified 02/05/23 17:22 Heart Rate prednisone Allergy Rapid Verified 02/05/23 17:22 Heart Rate Review of Systems ROS Statement: Those systems with pertinent positive or pertinent negative responses have been documented in the HPI. ROS Other: All systems not noted in ROS Statement are negative. Past Medical History Past Medical History: GERD/Reflux, Pneumonia, Thyroid Disorder Additional Past Medical History / Comment(s): Irregular heart beat, rt atrium enlargement,left bundle branch blockage, vertigo, hx closed head injury 10-13-13, past UTI and kidney infection, growths in lungs and other areas on CT/benign- sarcoidosis History of Any Multi-Drug Resistant Organisms: None Reported Additional Past Surgical History / Comment(s): partial thyroidectomy, EGD WITH DILATION, colonoscopy Past Anesthesia/Blood Transfusion Reactions: Motion Sickness Additional Past Anesthesia/Blood Transfusion Reaction / Comment(s): diff IV starts, cannot lie flat d/t vertigo. Past Psychological History: No Psychological Hx Reported Smoking Status: Former smoker Past Alcohol Use History: None Reported Past Drug Use History: None Reported - Past Family History Mother Family Medical History: No Reported History Additional Family Medical History / Comment(s): "heart problems" General Exam Limitations: no limitations General appearance: alert, in no apparent distress Head exam: Present: atraumatic, normocephalic, normal inspection Eye exam: Present: normal appearance, EOMI Neck exam: Present: normal inspection, full ROM Respiratory exam: Absent: respiratory distress Neurological exam: Present: alert, oriented X3 Psychiatric exam: Present: normal affect, normal mood Skin exam: Present: abrasion (left hand dorsal surface) Course Vital Signs 02/05/23 17:18 Temperature 98 F Pulse Rate 60 Respiratory 16 Rate Blood Pressure 129/75 O2 Sat by Pulse 95 Oximetry Procedures - Laceration Laceration #1 Consent Obtained: verbal consent Indication: laceration Site: hand Size (cm): 1 Description: linear Depth: simple, single layer Anesthetic Used: lidocaine 1%, without epi Anesthesia Technique: local infiltration Pre-repair: wound explored Type of Sutures: nylon Size of Sutures: 4-0 Number of Sutures: 2 Technique: simple, interrupted Patient Tolerated Procedure: well Medical Decision Making - Medical Decision Making Was pt. sent in by a medical professional or institution (MARITZA Mckeon, HYDROGEN TREATER, urgent care, hospital, or senior living...) When possible be specific @ -No Did you speak to anyone other than the patient for history (EMS, parent, family, police, friend...)? What history was obtained from this source @ -No Did you review nursing and triage notes (agree or disagree)? Why? @ -I reviewed and agree with nursing and triage notes Were old charts reviewed (outside hosp., previous admission, EMS record, old EKG, old radiological studies, urgent care reports/EKG's, senior living records)? Report findings @ -No old charts were reviewed Differential Diagnosis (chest pain, altered mental status, abdominal pain women, abdominal pain men, vaginal bleeding, weakness, fever, dyspnea, syncope, headache, dizziness, GI bleed, back pain, seizure, CVA, palpatations, mental health, musculoskeletal)? @ -not applicable EKG interpreted by me (3pts min.). @ -As above X-rays interpreted by me (1pt min.). @ -None done CT interpreted by me (1pt min.). @ -None done U/S interpreted by me (1pt. min.). @ -None done What testing was considered but not performed or refused? (CT, X-rays, U/S, labs)? Why? @ -None What meds were considered but not given or refused? Why? @ -None Did you discuss the management of the patient with other professionals (professionals i.e. DrBishop, PA, HYDROGEN TREATER, lab, RT, psych nurse, marriage and family social worker, corporate lawyer, teacher, airline pilot/first officer, manager rn case)? Give summary @ -No Was smoking cessation discussed for >3mins.? @ -No Was critical care preformed (if so, how long)? @ -No Were there social determinants of health that impacted care today? How? (Homelessness, low income, unemployed, alcoholism, drug addiction, transportation, low edu. Level, literacy, decrease access to med. care, assisted, rehab)? @ -No Was there de-escalation of care discussed even if they declined (Discuss DNR or withdrawal of care, Hospice)? DNR status @ -No What co-morbidities impacted this encounter? (DM, HTN, Smoking, COPD, CAD, Cancer, CVA, ARF, Chemo, Hep., AIDS, mental health diagnosis, sleep apnea, morbid obesity)? @ -None Was patient admitted / discharged? Hospital course, mention meds given and route, prescriptions, significant lab abnormalities, going to OR and other pertinent info. @ -9-year-old female presenting with chief complaint of abrasions to the left hand obtained today. Last tetanus was over 10 years ago, tetanus is updated today. Full range of motion of the hand and fingers. No numbness or tingling. Neurovascularly intact. The wounds are clean and Gelfoam was applied to the large abrasion on the dorsum of the hand. 2 sutures are applied to the small laceration. Patient is educated on wound care and signs of infection. Follow-up with PCP. Report back to ER with any new or worsening symptoms. Discussed return parameters and answered all questions. Patient conveyed verbal understanding and agreed to the plan. I discussed this case in detail with my attending Dr. Roskopp Undiagnosed new problem with uncertain prognosis? @ -No Drug Therapy requiring intensive monitoring for toxicity (Heparin, Nitro, Insulin, Cardizem)? @ -No Were any procedures done? @ -Laceration repair Diagnosis/symptom? @ -Laceration, abrasion Acute, or Chronic, or Acute on Chronic? @ -Acute Uncomplicated (without systemic symptoms) or Complicated (systemic symptoms)? @ -Complicated Side effects of treatment? @ -No Exacerbation, Progression, or Severe Exacerbation? @ -No Poses a threat to life or bodily function? How? (Chest pain, [place], [place], pneumonia, PE, COPD, DKA, ARF, appy, cholecystitis, CVA, Diverticulitis, Homicidal, Suicidal, threat to staff... and all critical care pts) @ -No Disposition Clinical Impression: Laceration Disposition: HOME SELF-CARE Condition: Good Instructions (If sedation given, give patient instructions): Care For Your Stitches (ED), Laceration (ED) Additional Instructions: Follow-up with PCP. Report back to ER with any new or worsening symptoms. Keep the wound clean and dry and covered. You may wash gently with soap and water. Sutures may be removed in 10-14 days. Gelfoam may be removed in 3-5 days. Is patient prescribed a controlled substance at d/c from ED?: No Referrals: Dash Bruno DO [Primary Care Provider] - 1-2 days Time of Disposition: 19:33
[2023-02-05] MEDS ORDERED: DIPH,PERTUS(ACELL)TETVAC-LF 0.5 ML VIAL IM ONE (19:23)
== END 2023-02-05 20:11 | disposition home or self-care (01) ==
LOC: EC 17:07
DX: S61.412A Laceration without foreign body of left hand, initial encounter (principal); K21.9 Gastro-esophageal reflux disease without esophagitis; E07.9 Disorder of thyroid, unspecified; Z87.891 Personal history of nicotine dependence; Z79.890 Hormone replacement therapy; Z79.899 Other long term (current) drug therapy; Z23 Encounter for immunization; W26.8XXA Contact with other sharp object(s), not elsewhere classified, initial encounter
CPT/HCPCS: 12001; 90471; 90715; 99282

== ENCOUNTER → 2023-08-24 | Outpatient (CLI) | payer MEDICARE ==
[2023-08-24 12:40] LABS: African American GFR (CKD) 89 (>60 ml/min/1.73 sqM); Blood Urea Nitrogen 17 mg/dL (7-17); Non-African American GFR(CKD) 77 (>60 ml/min/1.73 sqM)
--- NOTE | 2023-08-24 14:01 | CT ---
EXAMINATION TYPE: CT chest w con CT DLP: 394 mGycm, Automated exposure control for dose reduction was used. DATE OF EXAM: 08/24/2023 1:55 PM COMPARISON: 08/14/2022. CLINICAL INDICATION:Female, 73 years old with history of D86.0 SARCOIDOSIS OF LUNG; PHH, sarcoidosis of lung TECHNIQUE: Multiple axial images were obtained through the chest. Sagittal and coronal reformats were created for review. Contrast used:100 ml mL of Isovue 300 with IV Contrast (None if empty) Oral contrast used: (None if empty) FINDINGS: LUNGS/ PLEURA: Stable left lower lobe pulmonary nodule measuring 10 mm. No new or enlarging pulmonary nodules. No focal consolidation, pneumothorax or pleural effusion. AIRWAY: Patent and unremarkable. HEART: No heart is mildly enlarged for size. MEDIASTINUM: No gross evidence of adenopathy. VASCULATURE: No aortic aneurysm. MUSCULOSKELETAL: No acute osseous abnormalities SOFT TISSUES/LYMPH NODES: Unremarkable. LOWER NECK: No significant findings. UPPER ABDOMEN: Right simple appearing renal cysts. IMPRESSION: Stable left lower lobe pulmonary nodule. No new or enlarging pulmonary nodules. No defini tive evidence for sarcoidosis of the thorax. No lymphadenopathy.
== END | disposition home or self-care (01) ==
LOC: RADCTMAIN 11:59
PROVIDERS: ATTEND Internal Medicine Critical Care Medicine
DX: R91.1 Solitary pulmonary nodule (principal); D86.0 Sarcoidosis of lung
CPT/HCPCS: 82565; 84520; 71260; 36415; Q9967

== ENCOUNTER → 2023-12-24 | Outpatient (CLI) | payer MEDICARE ==
--- NOTE | 2023-12-27 11:20 | MM ---
Reason for Exam: Screening (asymptomatic). Last mammogram was performed 6 year(s) and 6 month(s) ago. Patient History: Menarche at age 19. First Full-Term at age 22. Postmenopausal. Risk Values: Anastasiia 5 year model risk: 1.4%. NCI Lifetime model risk: 4.0%. Prior Study Comparison: 12/07/2015 Bilateral Screening Mammogram, [facility]. 07/09/2017 Bilateral Diagnostic Mammogram, [facility]. Tissue Density: The breasts are heterogeneously dense, which may obscure small masses. Findings: Analyzed By CAD. Right breast: There is no suspicious group of microcalcifications or new suspicious mass. Left breast: There is no suspicious group of microcalcifications or new suspicious mass. Overall Assessment: Negative, BI-RAD 1 Management: Screening Mammogram of both breasts in [address] [facility] will attempt to contact patient to return for supplemental views and ultrasound if indicated. Patient should continue monthly self-breast exams. A clinical breast exam by your physician is recommended on an annual basis. This exam should not preclude additional follow-up of suspicious palpable abnormalities. Note on Anastasiia scores and lifetime risk: 1. A Anastasiia score greater than 3% is considered moderate risk. If this is the case, consider specialist referral to assess eligibility for a risk reducing agent. 2. If overall lifetime risk for the development of breast cancer is 20% or higher, the patient may qualify for future screening with alternating mammogram and breast MRI. Electronically signed and approved by: Garrett Dumont DO
== END | disposition home or self-care (01) ==
LOC: RADMAMWWP 07:28
PROVIDERS: ATTEND Family Medicine
DX: Z12.31 Encounter for screening mammogram for malignant neoplasm of breast
CPT/HCPCS: 77063; 77067

== ENCOUNTER → 2024-08-29 | Outpatient (CLI) | payer MEDICARE ==
[2024-08-29 13:37] LABS: African American GFR (CKD) 83 (>60 ml/min/1.73 sqM); Blood Urea Nitrogen 18 mg/dL (7-17); Non-African American GFR(CKD) 72 (>60 ml/min/1.73 sqM)
--- NOTE | 2024-08-29 14:35 | CT ---
EXAMINATION TYPE: CT chest w con CT DLP: 212.6 mGycm, Automated exposure control for dose reduction was used. DATE OF EXAM: 08/29/2024 2:16 PM COMPARISON: Multiple CT chest with most recent 08/24/2023, PET CT 01/31/2022 CLINICAL INDICATION:Female, 74 years old with history of D86.0 SARCOIDOSIS OF LUNG; PHH, sarcoidosis TECHNIQUE: Multiple axial images were obtained through the chest following the administration of 100 cc of Isovue 300. . Coronal and sagittal reformats reviewed. FINDINGS: LUNGS/ PLEURA: Mild biapical pleural-parenchymal scarring. No pleural effusion, pneumothorax, focal c onsolidation. No significant pulmonary fibrotic changes. Stable solid left lower lobe subpleural 1 c m pulmonary nodule (series 4, image 45). No new or enlarging pulmonary nodules. AIRWAY: Patent and unremarkable.. HEART: Mildly enlarged. . No pericardial effusion. Minimal coronary artery calcifications. MEDIASTINUM: No enlarged mediastinal lymph nodes greater than 1 cm short axis. Stable left hilar 1.3 cm enlarged lymph node (series 3, image 29). VASCULATURE: No aortic aneurysm. MUSCULOSKELETAL: No acute osseous abnormalities. Mild multilevel degenerative disc disease of the mid thoracic spine. SOFT TISSUES/LYMPH NODES: Unremarkable. LOWER NECK: No significant findings. UPPER ABDOMEN: Stable simple appearing right renal upper pole 2.3 cm cyst. No follow-up recommended. IMPRESSION: 1. Stable left lower lobe 1 cm solid pulmonary nodule. No new or enlarging pulmonary nodules. 2. Stable enlarged left hilar 1.3 cm lymph node. No new adenopathy. 3. No other significant evidence for pulmonary sarcoidosis. [facility], , 08/29/2024 2:32 PM
== END | disposition home or self-care (01) ==
LOC: RADCTMAIN 12:20
PROVIDERS: ATTEND Internal Medicine Critical Care Medicine
DX: D86.0 Sarcoidosis of lung (principal); R91.1 Solitary pulmonary nodule; R59.0 Localized enlarged lymph nodes
CPT/HCPCS: 82565; 84520; 71260; 36415; Q9967